=== PATIENT | female | born 1970 | race African-American/Black ===

== ENCOUNTER → 2016-12-04 | Outpatient (CLI) | payer OTHER ==
[~2016-12-04] MED LIST: NAPROSYN500 MG PO; NORCO 5-325 TA1 EACH PO; XANAX 0.5 MG0.5 MG PO; ZOFRAN ODT4 MG PO
== END ==
LOC: ULTRA 12:30 → RAD 12-05 07:38
DX: M47.896 Other spondylosis, lumbar region (principal); M54.41 Lumbago with sciatica, right side; M79.604 Pain in right leg; R60.9 Edema, unspecified

== ENCOUNTER → 2016-12-05 | Outpatient (CLI) | payer OTHER | LOC: RAD 14:21 | DX: Z12.31 Encounter for screening mammogram for malignant neoplasm of breast (principal) ==

== ENCOUNTER 2016-12-06 11:27 | Emergency (ER) | payer OTHER ==
[~2016-12-06] VITALS: Ht 175.3 cm; Wt 129.3 kg
[~2016-12-06 11:27] MED LIST changes: -NAPROSYN500 MG PO
[2016-12-06 13:02] VITALS: BP 128/60
[2016-12-06 13:05] LABS: CALCIUM 9.1 mg/dL (8.5-10.1); CREATININE 0.9 mg/dL (0.6-1.0); POTASSIUM 3.7 mmol/L (3.5-5.1)
[2016-12-06] MEDS ORDERED: NAPROSYN500 MG PO (13:45)
== END 2016-12-06 14:10 | disposition home or self-care (01) ==
LOC: ER 11:27
PROVIDERS: Physician Assistant
DX: S93.501A Unspecified sprain of right great toe, initial encounter (principal); F41.9 Anxiety disorder, unspecified; Z90.710 Acquired absence of both cervix and uterus; W10.9XXA Fall (on) (from) unspecified stairs and steps, initial encounter; Y93.89 Activity, other specified; Y92.89 Other specified places as the place of occurrence of the external cause; Y99.8 Other external cause status

== ENCOUNTER 2017-08-24 23:25 | Inpatient (IN) | payer OTHER ==
[~2017-08-24] VITALS: Ht 175.3 cm; Wt 131.5 kg
[~2017-08-24 23:25] MED LIST changes: +NAPROSYN500 MG PO
[2017-08-24 23:35] VITALS: BP 127/80
[2017-08-24] MEDS ORDERED: ZEGERID 40 MG1 EACH PO (23:39)
[2017-08-24] MEDS ORDERED: PROBIOTIC1 EAC1 PO (23:40)
[2017-08-24] MEDS ORDERED: ZYRTEC10 M5 PO (23:40)
[2017-08-25 00:33] LABS: URINE BILIRUBIN NEGATIVE (Negative); URINE BLOOD NEGATIVE (Negative); URINE CLARITY CLEAR; URINE COLOR YELLOW; URINE GLUCOSE-RANDOM* NEGATIVE (Negative); URINE KETONES NEGATIVE (Negative); URINE LEUKOCYTES-REFLEX NEGATIVE (Negative); URINE NITRITE-REFLEX NEGATIVE (Negative); URINE PROTEIN (DIPSTICK) NEGATIVE (Negative); URINE SPECIFIC GRAVITY 1.025 (1.005-1.035)
[2017-08-25 00:42] LABS: ABSOLUTE NEUTROPHILS 2.8 thou/uL (1.4-8.2); EOSINOPHILS 2.6 % (0.0-3.0); HEMATOCRIT 37.9 % (37.0-47.0); HEMOGLOBIN 12.7 gm/dL (12.0-15.0); LYMPHOCYTES 25.7 % (24.0-44.0); MCH 27.7 pg (26.0-34.0); MCHC 33.5 g/dL (28.0-37.0); MCV 82.7 fL (80.0-100.0); PLATELET COUNT 224 thou/uL (150-400); POLYS 62.7 % (36.0-66.0); RBC 4.58 mil/uL (4.20-5.00); RDW 15.7 % (10.5-14.5); WBC 4.5 thou/uL (4.0-11.0)
[2017-08-25 00:52] LABS: CALCIUM 8.5 mg/dL (8.5-10.1); CREATININE 0.9 mg/dL (0.6-1.0); POTASSIUM 3.2 mmol/L (3.5-5.1)
[2017-08-25 00:58] LABS: ALBUMIN 3.4 g/dL (3.4-5.0); DIRECT BILIRUBIN 0.1 mg/dL (<0.1-0.3); TOTAL BILIRUBIN 0.3 mg/dL (<0.1-1.0); TOTAL PROTEIN 8.1 g/dL (6.4-8.2)
[2017-08-25 04:15] VITALS: BP 127/50
[2017-08-25 04:28] VITALS: BP 120/56
[2017-08-25 08:43] VITALS: BP 115/58
[2017-08-25 15:13] VITALS: BP 111/64
[2017-08-25 19:14] VITALS: BP 122/67
[2017-08-26 03:24] VITALS: BP 125/55
[2017-08-26 05:39] LABS: CALCIUM 8.7 mg/dL (8.5-10.1); POTASSIUM 3.4 mmol/L (3.5-5.1)
[2017-08-26 07:20] VITALS: BP 113/72
[2017-08-26] MEDS ORDERED: PEPCID20 MG PO (08:41)
[2017-08-26 15:24] VITALS: BP 114/67
[2017-08-26 20:00] VITALS: BP 125/69
[2017-08-27 04:00] VITALS: BP 106/64
[2017-08-27 07:30] VITALS: BP 131/67
[2017-08-27 15:48] VITALS: BP 131/67
== END 2017-08-27 16:42 | disposition home or self-care (01) | DRG 391 ==
LOC: ER 23:25 → 4W 08-25 03:20 → EROBS 08-25 03:20 → 4W 08-25 03:59 → ENTRNSPT 08-27 16:14 → 4W 08-27 16:42
PROVIDERS: Emergency Medicine; Nurse Practitioner Family
DX: A08.4 Viral intestinal infection, unspecified (principal); E43 Unspecified severe protein-calorie malnutrition; Z68.41 Body mass index [BMI] 40.0-44.9, adult; K29.00 Acute gastritis without bleeding; F41.9 Anxiety disorder, unspecified; E66.01 Morbid (severe) obesity due to excess calories; Z90.710 Acquired absence of both cervix and uterus; Z79.899 Other long term (current) drug therapy; Z88.2 Allergy status to sulfonamides
CPT/HCPCS: 10040

== ENCOUNTER → 2017-09-02 | Outpatient (CLI) | payer OTHER ==
[~2017-09-02] MED LIST changes: +PEPCID20 MG PO; +PROBIOTIC1 EAC1 PO; +ZEGERID 40 MG1 EACH PO; +ZYRTEC10 M5 PO
== END ==
LOC: NUC 08:57 → CAT 13:48 → NUC 13:49
DX: N83.201 Unspecified ovarian cyst, right side (principal); K57.30 Diverticulosis of large intestine without perforation or abscess without bleeding; J90 Pleural effusion, not elsewhere classified; Z90.710 Acquired absence of both cervix and uterus

== ENCOUNTER 2018-07-17 12:08 | Emergency (ER) | payer OTHER ==
[~2018-07-17] VITALS: Ht 172.7 cm; Wt 113.4 kg
[2018-07-17] MEDS ORDERED: DOXYCYCLINE 10100 MG PO (14:08)
[2018-07-17] MEDS ORDERED: MEDROLDOSEPACK PO (14:08)
[2018-07-17 16:10] VITALS: BP 116/77
== END 2018-07-17 14:25 | disposition home or self-care (01) ==
LOC: ER 12:08
DX: J32.1 Chronic frontal sinusitis (principal); J32.0 Chronic maxillary sinusitis; F41.9 Anxiety disorder, unspecified; Z88.2 Allergy status to sulfonamides; Z90.710 Acquired absence of both cervix and uterus

== ENCOUNTER → 2018-12-26 | Outpatient (CLI) | payer OTHER ==
[~2018-12-26] MED LIST changes: +DOXYCYCLINE 10100 MG PO; +MEDROLDOSEPACK PO
== END ==
LOC: RAD 12:02
DX: Z12.31 Encounter for screening mammogram for malignant neoplasm of breast (principal)

== ENCOUNTER 2019-01-25 23:54 | Emergency (ER) | payer OTHER ==
[~2019-01-25] VITALS: Ht 175.3 cm; Wt 131.5 kg
[2019-01-26] MEDS ORDERED: LEXAPRO 10 MG T10 M1 PO (00:01)
[2019-01-26] MEDS ORDERED: SPIRONOLACTONE25 M1 PO (00:02)
[2019-01-26 02:49] VITALS: BP 147/84
== END 2019-01-26 03:10 | disposition home or self-care (01) ==
LOC: ER 23:54
DX: M79.652 Pain in left thigh (principal); M79.662 Pain in left lower leg; R22.42 Localized swelling, mass and lump, left lower limb; F41.9 Anxiety disorder, unspecified; Z90.710 Acquired absence of both cervix and uterus; Z88.2 Allergy status to sulfonamides

== ENCOUNTER 2019-06-04 01:49 | Emergency (ER) | payer OTHER ==
[~2019-06-04] VITALS: Ht 175.3 cm; Wt 129.3 kg
[~2019-06-04 01:49] MED LIST changes: +LEXAPRO 10 MG T10 M1 PO; +SPIRONOLACTONE25 M1 PO
[2019-06-04 03:05] LABS: URINE BILIRUBIN NEGATIVE (Negative); URINE BLOOD NEGATIVE (Negative); URINE CLARITY CLEAR; URINE COLOR YELLOW; URINE GLUCOSE-RANDOM* NEGATIVE (Negative); URINE KETONES NEGATIVE (Negative); URINE LEUKOCYTES-REFLEX NEGATIVE (Negative); URINE NITRITE-REFLEX NEGATIVE (Negative); URINE PROTEIN (DIPSTICK) NEGATIVE (Negative); URINE SPECIFIC GRAVITY 1.025 (1.005-1.035); URINE UROBILINOGEN 0.2 E.U./dl (0.2-1.0)
[2019-06-04 04:09] LABS: ABSOLUTE NEUTROPHILS 5.4 thou/uL (1.4-8.2); BASOPHILS 0.4 % (0.0-2.0); EOSINOPHILS 1.1 % (0.0-3.0); HEMATOCRIT 36.8 % (37.0-47.0); HEMOGLOBIN 12.2 gm/dL (12.0-15.0); LYMPHOCYTES 14.4 % (24.0-44.0); MCH 28.7 pg (26.0-34.0); MCHC 33.3 g/dL (28.0-37.0); MCV 86.2 fL (80.0-100.0); MONOCYTES 7.7 % (1.0-8.0); PLATELET COUNT 267 thou/uL (150-400); POLYS 76.4 % (36.0-66.0); RBC 4.27 mil/uL (4.20-5.00); RDW 15.9 % (10.5-14.5); WBC 7.1 thou/uL (4.0-11.0)
[2019-06-04 04:14] LABS: ANION GAP 7 mmol/L (7-16); BUN 11 mg/dL (7-18); CALCIUM 9.2 mg/dL (8.5-10.1); CHLORIDE 99 mmol/L (98-107); CO2 28 mmol/L (21-32); CREATININE 0.8 mg/dL (0.6-1.0); GLUCOSE 110 mg/dL (74-106); POTASSIUM 3.8 mmol/L (3.5-5.1); SODIUM 134 mmol/L (136-145)
[2019-06-04 04:21] LABS: ALBUMIN 3.3 g/dL (3.4-5.0); DIRECT BILIRUBIN < 0.1 mg/dL (<0.1-0.2); LIPASE 40 U/L (73-393); SGOT 23 U/L (15-37); SGPT 29 U/L (30-65); TOTAL BILIRUBIN 0.1 mg/dL (<0.1-1.0); TOTAL PROTEIN 7.7 g/dL (6.4-8.2)
[2019-06-04] MEDS ORDERED: MOBIC7.5 MG PO (05:32)
[2019-06-04] MEDS ORDERED: CIPROFLOXACIN500 M1 PO (05:32)
[2019-06-04] MEDS ORDERED: FLAGYL500 M1 PO (05:32)
[2019-06-04] MEDS ORDERED: ZOFRAN ODT4 MG PO (05:32)
[2019-06-04 05:41] VITALS: BP 136/84
== END 2019-06-04 06:07 | disposition home or self-care (01) ==
LOC: ER 01:49
PROVIDERS: Emergency Medicine
DX: K57.92 Diverticulitis of intestine, part unspecified, without perforation or abscess without bleeding (principal); R55 Syncope and collapse; K92.1 Melena; B02.9 Zoster without complications; R11.2 Nausea with vomiting, unspecified; R19.7 Diarrhea, unspecified; Z90.710 Acquired absence of both cervix and uterus; Z79.899 Other long term (current) drug therapy; Z88.2 Allergy status to sulfonamides

== ENCOUNTER 2019-08-23 15:29 | Emergency (ER) | payer OTHER ==
[~2019-08-23] VITALS: Ht 175.3 cm; Wt 131.5 kg
[~2019-08-23 15:29] MED LIST changes: +CIPROFLOXACIN500 M1 PO; +FLAGYL500 M1 PO; +MOBIC7.5 MG PO
[2019-08-23 16:16] LABS: HEMATOCRIT 39.6 % (37.0-47.0); HEMOGLOBIN 13.1 gm/dL (12.0-15.0); MCV 84.9 fL (80.0-100.0); RBC 4.66 mil/uL (4.20-5.00); RDW 15.8 % (10.5-14.5); WBC 3.6 thou/uL (4.0-11.0)
[2019-08-23 16:28] LABS: ANION GAP 7 mmol/L (7-16); BUN 9 mg/dL (7-18); CALCIUM 9.3 mg/dL (8.5-10.1); CHLORIDE 104 mmol/L (98-107); CO2 29 mmol/L (21-32); CREATININE 0.9 mg/dL (0.6-1.0); GLUCOSE 97 mg/dL (74-106); POTASSIUM 3.6 mmol/L (3.5-5.1); SODIUM 140 mmol/L (136-145)
[2019-08-23 16:31] LABS: TROPONIN-I <0.06 ng/mL (<0.06)
[2019-08-23 16:37] LABS: URINE BILIRUBIN NEGATIVE (Negative); URINE BLOOD NEGATIVE (Negative); URINE CLARITY CLEAR; URINE COLOR YELLOW; URINE GLUCOSE-RANDOM* NEGATIVE (Negative); URINE KETONES NEGATIVE (Negative); URINE LEUKOCYTES-REFLEX NEGATIVE (Negative); URINE NITRITE-REFLEX NEGATIVE (Negative); URINE PROTEIN (DIPSTICK) NEGATIVE (Negative); URINE SPECIFIC GRAVITY 1.015 (1.005-1.035); URINE UROBILINOGEN 0.2 E.U./dl (0.2-1.0)
[2019-08-23 16:43] LABS: AMP/METHAMP Negative (Negative); BARBITURATES Negative (Negative); BENZODIAZEPINES Negative (Negative); COCAINE Negative (Negative); METHADONE Negative (Negative); OPIATES Negative (Negative); PCP Negative (Negative)
[2019-08-23] MEDS ORDERED: REGLAN 5 MG TAB5 MG PO (18:55)
[2019-08-23 19:24] VITALS: BP 138/70
--- NOTE | 2019-08-24 07:27 | EKG ---
[facility] [place] [address] ELECTROCARDIOGRAM REPORT Name: SULAIMAN OLSON Room #: DEP [facility]#: [id number] Admission: 08/23/19 Attend Phys: Discharge: 08/23/19 Date of : 68 Report #: [id number] THIS REPORT FOR: cc: Delia Young DNP, Mary E. DNP Lundgren, Craig H. MD [facility] THIS REPORT FOR: //name// [facility] ED Test Date: 2019-08-23 Test Time: 15:48:00 Pat Name: SULAIMAN OLSON Department: Room: Gender: F Green House Manager: : 1970 Requested By: Rodrick Coleman Order Number: [id number] MD: Aram Austin Measurements Intervals Howe Rate: 68 P: 5 MN: 196 QRS: 23 QRSD: 100 T: 14 QT: 402 QTc: 428 Interpretive Statements Sinus rhythm Abnormal R-wave progression, early transition Borderline T abnormalities, anterior leads Compared to ECG 09/17/2015 19:23:45 No significant changes Electronically Signed On 08-24-2019 7:26:20 CDT by Aram Austin [email or web address] <ELECTRONICALLY SIGNED> By: Aram Austin MD, [facility] 08/24/19 0726 1548 1548 Aram Austin MD, [facility] /EPI
== END 2019-08-23 19:25 | disposition home or self-care (01) ==
LOC: ER 15:29
PROVIDERS: Emergency Medicine
DX: R51 Headache (principal); R11.0 Nausea; Z90.710 Acquired absence of both cervix and uterus; Z79.2 Long term (current) use of antibiotics; Z79.899 Other long term (current) drug therapy; Z88.2 Allergy status to sulfonamides

== ENCOUNTER → 2020-03-24 | Outpatient (CLI) | payer OTHER ==
[~2020-03-24] MED LIST changes: +REGLAN 5 MG TAB5 MG PO
== END ==
LOC: RAD 15:34
PROVIDERS: ATTEND Nurse Practitioner
DX: Z12.31 Encounter for screening mammogram for malignant neoplasm of breast (principal)

== ENCOUNTER 2020-05-09 14:28 | Emergency (ER) | payer OTHER ==
[~2020-05-09] VITALS: Ht 175.3 cm; Wt 133.8 kg
[2020-05-09] MEDS ORDERED: AUGMENTIN 875-1 EACH PO (15:05)
[2020-05-09] MEDS ORDERED: PROMETHAZINE-D473 M1 PO (15:05)
[2020-05-09 16:00] VITALS: BP 145/87
== END 2020-05-09 16:57 | disposition home or self-care (01) ==
LOC: ER 14:28
DX: J32.9 Chronic sinusitis, unspecified (principal); R11.10 Vomiting, unspecified; Z90.710 Acquired absence of both cervix and uterus; Z79.1 Long term (current) use of non-steroidal anti-inflammatories (NSAID); Z79.899 Other long term (current) drug therapy; Z88.2 Allergy status to sulfonamides; Z20.822 Contact with and (suspected) exposure to COVID-19

== ENCOUNTER → 2020-05-13 | Outpatient (CLI) | payer OTHER ==
[~2020-05-13] MED LIST changes: +AUGMENTIN 875-1 EACH PO; +PROMETHAZINE-D473 M1 PO
== END ==
LOC: NUC 05-02 14:44
PROVIDERS: ATTEND Nurse Practitioner
DX: R10.9 Unspecified abdominal pain (principal)

== ENCOUNTER → 2020-05-26 | Outpatient (CLI) | payer OTHER | LOC: ULTRA 09:15 | PROVIDERS: ATTEND Surgery | DX: K76.89 Other specified diseases of liver (principal) ==

== ENCOUNTER 2020-08-17 00:11 | Emergency (ER) | payer OTHER ==
[~2020-08-17] VITALS: Ht 175.3 cm; Wt 136.1 kg
[2020-08-17] MEDS ORDERED: ADVIL200 M1 PO (00:28)
[2020-08-17] MEDS ORDERED: TYLENOL325 M1 PO (02:17)
[2020-08-17] MEDS ORDERED: IBUPROFEN 800800 MG PO (02:17)
[2020-08-17] MEDS ORDERED: VANACOF DM LIQ240 ML PO (02:17)
[2020-08-17 02:29] VITALS: BP 136/63
== END 2020-08-17 02:32 | disposition home or self-care (01) ==
LOC: ER 00:11
DX: U07.1 COVID-19 (principal); Z88.2 Allergy status to sulfonamides; Z79.899 Other long term (current) drug therapy; Z90.710 Acquired absence of both cervix and uterus

== ENCOUNTER 2020-08-21 15:27 | Inpatient (IN) | payer OTHER ==
[~2020-08-21] VITALS: Ht 175.3 cm; Wt 138.8 kg
[~2020-08-21 15:27] MED LIST changes: +ADVIL200 M1 PO; +IBUPROFEN 800800 MG PO; +TYLENOL325 M1 PO; +VANACOF DM LIQ240 ML PO
[2020-08-21 15:40] VITALS: BP 149/66
[2020-08-21 16:27] LABS: HEMATOCRIT 34.5 % (37.0-47.0); HEMOGLOBIN 11.1 gm/dL (12.0-15.0); MCH 26.7 pg (26.0-34.0); MCHC 32.2 g/dL (28.0-37.0); PLATELET COUNT 112 thou/uL (150-400); RBC 4.16 mil/uL (4.20-5.00); RDW 16.7 % (10.5-14.5); WBC 2.2 thou/uL (4.0-11.0)
[2020-08-21 16:41] LABS: ANION GAP 5 mmol/L (7-16); BUN 8 mg/dL (7-18); CALCIUM 8.4 mg/dL (8.5-10.1); CHLORIDE 103 mmol/L (98-107); CO2 31 mmol/L (21-32); CREATININE 1.1 mg/dL (0.6-1.0); GLUCOSE 119 mg/dL (74-106); POTASSIUM 3.6 mmol/L (3.5-5.1); SODIUM 139 mmol/L (136-145)
[2020-08-21 16:50] LABS: ALBUMIN 2.8 g/dL (3.4-5.0); SGOT 27 U/L (15-37); SGPT 23 U/L (14-59); TOTAL BILIRUBIN 0.3 mg/dL (0.2-1.0); TOTAL PROTEIN 7.1 g/dL (6.4-8.2); TROPONIN-I <0.06 ng/mL (<0.06)
[2020-08-21 17:21] LABS: ABSOLUTE NEUTROPHILS 1.7 thou/uL (1.4-8.2); ANISOCYTOSIS 1+; HYPOCHROMASIA 1+; MICROCYTES 1+; POLYCHROMASIA SLIGHT
[2020-08-21 17:23] LABS: LARGE PLATELETS FEW
[2020-08-21 18:34] LABS: URINE BILIRUBIN NEGATIVE (Negative); URINE BLOOD NEGATIVE (Negative); URINE CLARITY SL CLOUDY; URINE COLOR YELLOW; URINE GLUCOSE-RANDOM* NEGATIVE (Negative); URINE KETONES NEGATIVE (Negative); URINE LEUKOCYTES-REFLEX NEGATIVE (Negative); URINE NITRITE-REFLEX NEGATIVE (Negative); URINE PROTEIN (DIPSTICK) NEGATIVE (Negative); URINE SPECIFIC GRAVITY <= 1.005 (1.005-1.035)
[2020-08-21 18:51] VITALS: BP 125/50
[2020-08-21 19:01] VITALS: BP 125/50
[2020-08-21 20:07] VITALS: BP 142/85
[2020-08-21] MEDS ORDERED: NORCO5 PO (23:00)
[2020-08-21] MEDS ORDERED: SPIRONOLACTONE100 M1 PO (23:01)
[2020-08-21] MEDS ORDERED: OMEPRAZOLE40 MG PO (23:01)
[2020-08-22] VITALS (7 sets, daily range): BP systolic 90–121; BP diastolic 41–68
[2020-08-22 05:39] LABS: MCHC 32.5 g/dL (28.0-37.0); MCV 83.2 fL (80.0-100.0); RBC 4.09 mil/uL (4.20-5.00); RDW 16.4 % (10.5-14.5)
[2020-08-22 05:43] LABS: WBC 1.7 thou/uL (4.0-11.0)
[2020-08-22 05:53] LABS: ALBUMIN 2.5 g/dL (3.4-5.0); CALCIUM 8.2 mg/dL (8.5-10.1); CREATININE 0.9 mg/dL (0.6-1.0); POTASSIUM 3.9 mmol/L (3.5-5.1); TOTAL BILIRUBIN 0.2 mg/dL (0.2-1.0); TOTAL PROTEIN 6.8 g/dL (6.4-8.2)
--- NOTE | 2020-08-22 07:31 | NUR ---
ASSUME CARE 1999. PT/VITALS STABLE. TEMP STABLE NOW. A/O X 4/PLEASANT. INTERNITTENT CHEST AND BACK PAIN. GIOOD TOLERANCE TO ACTIVITY. SOB WITH EXERTION. SR ON MONITOR. NO DISTRESS NOTED THROUGH THE SHIFT. ON 2L NC THROUGHOUT WITH NO INCREASE IN O2 DEMAND. WBC CRITICALLY LOW AT 1.7/ REHABILITATION INSPECTOR AWARE. ASSESSMENT CHARTED. CONSULTS PLACED FOR ID AND PULMONARY. PLAN IS TO CONTINUE TO MONITOR PT FOR WORSENING COVID SYMPTOMS AND CONTINUE MANAGEMENT OF COVID PNA. WILL CONTINUE TO MONITOR AND FOLLOW WITH POC
[2020-08-22 11:46] LABS: BE(vivo) 0.6 mmol/L (-2 to +3); HCO3 24.7 mmol/L (22.0-26.0); PCO2 37.7 mmHg (35.0-45.0); PO2 64.6 mmHg (80.0-100.0); pH 7.434 (7.360-7.450); sO2 93.3 % (92.0-98.0)
--- NOTE | 2020-08-22 15:00 | NUR ---
INITIAL ASSESSMENT: SW reviewed chart and spoke with nursing and attending physician. Pt was admitted from home due to COVID. Pt had positive COVID test on 08/17. Pt has not received the COVID vaccine. Pt febrile and on 2L of O2. Pt is on IV abx and IV steroids. Pt has been started on Remdesivir. Pulm and ID consulted. SW spoke with pt via phone. Introduced role of SW. Pt is alert/orientated x 4 and reports she lives at home. Prior to admission, pt was independent with ADLs. Pt is employed. Pt's PCP is Dr. Delia Young. No use of DME prior to admission. Plan is for pt to discharge home when medically stable. SW is following to assist as needed with discharge planning.
--- NOTE | 2020-08-22 18:29 | NUR ---
PATIENT HAD UNEVENTFUL DAY. OXYGEN WEANED FROM 2L TO RA WITH O2 SATS REMAINING IN UPPER 90S. RT COLLECTED ABG, WHICH REVEALED PO2 OF 64, SO 2L NC WAS PLACED. PATIENT ABLE TO PERFORM ADLS AND AMBULATE IN THE ROOM INDEPENDENTLY. TOLERATING MEALS. SHE HAD A FEW OCCURANCES OF LOOSE STOOL, SO IMODIUM WAS ORDERED AND ADMINISTERED.
--- NOTE | 2020-08-22 22:13 | NUR ---
PT ALERT AND ORIENTED X4. VSS. UNLABORED ON O2 1LNC. BS DIMINISHED. NO COUGH NOTED PRESENTLY AT TIME OF ASSESSMENT. C/O HANEY. MEDICATED WITH 2 TYLENOL. XANAX GIVEN FOR ANXIETY. IV ABX INFUSING. NO S/S DISTRESS PRESENTLY. WILL CONTINUE TO MONITOR PT FOR CHANGES.
[2020-08-23 04:07] VITALS: BP 86/54
[2020-08-23 04:27] VITALS: BP 98/58
[2020-08-23 05:56] LABS: BASOPHILS 0.2 % (0.0-2.0); HEMOGLOBIN 10.7 gm/dL (12.0-15.0); RBC 3.96 mil/uL (4.20-5.00)
[2020-08-23 05:59] LABS: EOSINOPHILS 0.2 % (0.0-3.0); HEMATOCRIT 33.1 % (37.0-47.0); LYMPHOCYTES 33.7 % (24.0-44.0); MCH 27.1 pg (26.0-34.0); MCHC 32.3 g/dL (28.0-37.0); MCV 83.7 fL (80.0-100.0); MONOCYTES 12.8 % (1.0-8.0); PLATELET COUNT 123 thou/uL (150-400); POLYS 53.1 % (36.0-66.0); RDW 16.4 % (10.5-14.5)
[2020-08-23 06:05] LABS: ALBUMIN 2.2 g/dL (3.4-5.0); CALCIUM 8.4 mg/dL (8.5-10.1); CREATININE 0.9 mg/dL (0.6-1.0); MAGNESIUM 2.1 mg/dL (1.8-2.4); POTASSIUM 4.3 mmol/L (3.5-5.1); TOTAL BILIRUBIN 0.1 mg/dL (0.2-1.0); TOTAL PROTEIN 6.2 g/dL (6.4-8.2)
[2020-08-23 06:12] LABS: WBC 1.8 thou/uL (4.0-11.0)
[2020-08-23 08:00] VITALS: BP 115/68
--- NOTE | 2020-08-23 08:03 | HC ---
[facility] [place] [address] CONSULTATION Name: SULAIMAN OLSON Room #: 349-I ADM IN M.R.#: [id number] Admission: 08/21/20 Attend Phys: Eliot Mar MD Discharge: Date of : 68 Report #: [id number] THIS REPORT FOR: cc: Delia Young DNP, Mary E. DNP Barry, Joseph W. MD ~ DOC #: [id number] Panda Chapman MD DATE OF SERVICE: 08/22/2020 INFECTIOUS DISEASE CONSULTATION ATTENDING PHYSICIAN: Dr. Keyes. REASON FOR EVALUATION: COVID-19 infection, complicated by pneumonitis and respiratory failure. HISTORY OF PRESENT ILLNESS: The patient examined. This is a 49-year-old woman with history of prediabetes, some anxiety, presented to the emergency room with complaints of dyspnea. She had been seen earlier on 08/17. At that time with nasal congestion, felt to have some fevers, complains of chills and dyspnea, has not had significant cough at that point, underwent testing for influenza, which was negative; however, had a positive COVID-19 test. Due to the progressive signs and symptoms, she represented to the emergency room again with dyspnea, nonproductive cough and fever. Chest x-ray noted no acute process; however, CT did note changes, multifocal patchy alveolar infiltrates suggestive of the COVID-19. Due to concern about hypoxemia, she was admitted, placed on supplemental oxygen to 2 L per nasal cannula. She was empirically started on antimicrobial therapy including ceftriaxone and given remdesivir as well. Currently, she has a persistent cough, although now she is off oxygen. She appreciates that she has been afebrile over the course of the last 12 hours. She does admit to chest related discomfort, perhaps attributable to coughing. She has a diminished appetite with poor p.o. intake and subsequently developed diarrheal stools. ALLERGIES: LISTED TO SULFA. CURRENT MEDICATIONS: Include vitamins, spironolactone, citalopram, loratadine, dexamethasone, pantoprazole, zinc sulfate, ascorbic acid, enoxaparin, alprazolam as needed, remdesivir, ceftriaxone. PAST MEDICAL HISTORY: As described above, dysfunctional uterine bleeding, required embolization, previous hysterectomy, prediabetes, anxiety. SOCIAL HISTORY: Nonsmoker, occasional ethanol, no illicit drug use. [address] [address] CONSULTATION Name: SULAIMAN OLSON Room #: 349-I ADM IN M.R.#: [id number] Admission: 08/21/20 Attend Phys: Eliot Mar MD Discharge: Date of : 68 Report #: [id number] FAMILY HISTORY: Noncontributory. REVIEW OF SYSTEMS: Otherwise, unremarkable. PHYSICAL EXAMINATION: GENERAL: She is lucid. She is in moderate distress. She has a cough that is not evidently productive. She is reasonably well nourished. VITAL SIGNS: Temperature 98.1, T-max last night up to 103.1, pulse 78, respirations 18, blood pressure 90/54. SKIN: Warm, dry, no rashes. HEENT: Normocephalic. Extraocular muscles intact. NECK: Supple. LUNGS: Few scattered coarse breath sounds. HEART: Irregular, do not appreciate a murmur. ABDOMEN: Obese, somewhat firm, nontender. EXTREMITIES: No cyanosis. GENITOURINARY AND RECTAL: Deferred. LABORATORY DATA: Blood cultures sterile thus far. Electrolytes: Sodium 142, potassium 3.9, chloride 107, bicarbonate 26, anion gap of 9, BUN and creatinine 9 and 0.9, glucose of 174. LFTs unremarkable. Albumin of 2.5, total protein of 6.8, estimated GFR of 80. CBC: White count of 1.7, H and H 11.0 and 34.0, platelets of 113. Urinalysis unremarkable. CT of the chest as noted above. No evidence of PE, has had multifocal patchy alveolar infiltrates consistent with COVID-19 pneumonitis, small pleural effusions, suspect some reactive adenopathy. D-dimer 1.13. ProBNP of 5. Lactic acid of 0.8. ASSESSMENT AND PLAN: 1. COVID-19 infection, complicated by pneumonitis and respiratory failure. 2. Pancytopenia, presumably of reactive nature. CBC over a year ago was notable for no cytopenias. We will plan to continue empiric therapy with ceftriaxone as well as a 5-day course of remdesivir. We will add ivermectin. Continue corticosteroids and vitamins. If worsens, we would utilize some Actemra. She remains quite tenuous at this point. Continue to monitor expectantly. She has persistent diarrhea that certainly could be secondary to the COVID or perhaps some other complications, can send additional stool studies as required. She remains somewhat tenuous. MD SATINDER Quiroz/TIAGO [facility] [address] [place] [address] CONSULTATION Name: WESLEYSULAIMAN Room #: 349-I ADM IN Miriam.Denia.#: [id number] Admission: 08/21/20 Attend Phys: Eliot Mar MD Discharge: Date of : 68 Report #: [id number] <ELECTRONICALLY SIGNED> By: Panda Chapman MD 08/23/20 08 0916 21 Panda Chapman MD /nt
--- NOTE | 2020-08-23 10:45 | NUR ---
ASSUMED PT CARE AT SHIFT CHANGE, PT IS A&OX4, REGULAR, UNLABORED BREATHING. PT STATES SHE IS VERY TIRED, THIS RN EXPLAINED COVID19 DISEASE PROCESS AND ENCOURAGED PT TO REST MUCH POSSIBLE. PT VERBALIZED UNDERSTANDING. PT HAS NO OTHER COMPLAINTS, IV SITE WNL, INFUSING MEDICATION. PT ABLE TO SWALLOW PILLS W/O ISSUE.
--- NOTE | 2020-08-23 12:57 | NUR ---
SW reviewed chart and spoke with nursing and attending physician. Pt remains in Enhanced Isolation due to COVID. Pt is afebrile and on 1L of O2. Pt is on IV steroids, Remdesivir and Ivermectin. Plan is for pt to return home when medically stable and after completion of course of Remdesivir. SW is following to assist as needed with discharge planning.
[2020-08-23 15:03] VITALS: BP 95/58
[2020-08-23 19:29] VITALS: BP 119/77
--- NOTE | 2020-08-24 04:47 | NUR ---
FOLLOWING POC WITH REMDESIVIR AND IVPB ANTIBIOTIC. PT STATES SHE GETS SOA GOING TO RESTROOM AND STILL EXTREMELY EXHAUSTED. CALL LIGHT ACCESSIBLE.
[2020-08-24 06:04] VITALS: BP 101/57
[2020-08-24 07:02] VITALS: BP 100/59
[2020-08-24 11:11] VITALS: BP 105/62
[2020-08-24 12:23] LABS: % SATURATION 34 % (20-39); IRON 66 ug/dL (50-170); TIBC 197 ug/dL (250-450)
[2020-08-24 12:50] LABS: FOLIC ACID 17.8 ng/mL (8.6-58.9)
--- NOTE | 2020-08-24 13:26 | NUR ---
REQUESTED IS FROM RT. ANA WILL BRING ONE UP FOR PT.
--- NOTE | 2020-08-24 13:32 | NUR ---
MAXWELL reviewed chart and spoke with nursing and attending physician. Pt remains in Enhanced Isolation due to COVID. Pt is afebrile and on 1L of O2. Pt is on IV abx and IV steroids. Pt will finish courses of Remdesivir and Ivermectin prior to discharge. MAXWELL spoke with pt via phone. Pt states she feels short of breath when up walking. Pt was not on O2 or receiving breathing treatments prior to discharge. PT/OT to be ordered to evaluate pt for discharge needs. Pt may need rest/exercise oximetry prior to discharge to determine if pt qualifies for home O2. MAXWELL is following to assist as needed with discharge planning.
[2020-08-24 19:59] VITALS: BP 111/66
[2020-08-25 07:52] LABS: HEMATOCRIT 31.7 % (37.0-47.0); HEMOGLOBIN 10.4 gm/dL (12.0-15.0); MCH 27.1 pg (26.0-34.0); MCHC 32.8 g/dL (28.0-37.0); MCV 82.5 fL (80.0-100.0); PLATELET COUNT 162 thou/uL (150-400); RBC 3.84 mil/uL (4.20-5.00); RDW 16.7 % (10.5-14.5)
[2020-08-25 08:49] VITALS: BP 104/64
[2020-08-25 10:41] LABS: ABSOLUTE NEUTROPHILS 1.6 thou/uL (1.4-8.2); METAMYELOCYTES 1 %; PLATELET ESTIMATE NORMAL
[2020-08-25 11:13] VITALS: BP 112/67
--- NOTE | 2020-08-25 13:39 | NUR ---
MAXWELL reviewed chart and spoke with nursing and attending physician. Pt remains in Enhanced Isolation due to COVID. Pt is afebrile and on 2L of O2. Pt is on IV abx and IV steroids. Pt is completing course of Remdesivir. Discharge home is anticipated in 1-2 days. PT/OT to eval for discharge needs. Rest/exercise oximetry to be completed to determine if pt needs home O2. MAXWELL received voice message from IRENE Reynoso CM at pt's insurance. ( ext [phone]). MAXWELL returned call and left voice message for [place] to request list of in-network providers. Plan is for pt to discharge home when medically stable. MAXWELL is following to assist as needed with discharge planning.
--- NOTE | 2020-08-25 14:57 | NUR ---
PATIENT HAS HAD C/O NON CHEST PAIN. PATIENT STATES "MY CHEST HURTS FROM COUGHING". DR. OLIVA NOTIFIED, NEW MEDICATIONS ORDERED. PATIENT WORKED WITH PT AND OT THIS SHIFT. NO OTHER CHANGES THIS SHIFT.
[2020-08-25 16:14] VITALS: BP 131/56
[2020-08-25 21:10] VITALS: BP 112/65
[2020-08-26 04:15] VITALS: BP 120/72
--- NOTE | 2020-08-26 04:32 | NUR ---
PT MAKING SLOW PROGRESS TOWARDS GOALS. ON O2 AT 2L PER NC OVERNIGHT. X1 DOSE OF PAIN MEDICATION FOR CHEST DISCOMFORT AND HEADACHE R/T COUGHING. PAIN FROM 8/10 TO 5/10 AFTER DOSING.
[2020-08-26 06:07] LABS: HEMATOCRIT 34.4 % (37.0-47.0); MCH 26.5 pg (26.0-34.0); MCHC 31.9 g/dL (28.0-37.0); MCV 83.1 fL (80.0-100.0); PLATELET COUNT 187 thou/uL (150-400); RBC 4.14 mil/uL (4.20-5.00); RDW 16.8 % (10.5-14.5); WBC 3.7 thou/uL (4.0-11.0)
[2020-08-26 07:44] VITALS: BP 119/84
--- NOTE | 2020-08-26 08:18 | HC ---
[facility] [place] [address] CONSULTATION Name: SULAIMAN OLSON Room #: 349-I ADM IN M.R.#: [id number] Admission: 08/21/20 Attend Phys: Eliot Mar MD Discharge: Date of : 68 Report #: [id number] THIS REPORT FOR: cc: Delia Young DNP, Mary E. DNP McKittrick, Richard James MD ~ DOC #: [id number] cc: Eliot Mar MD, Tobi Pascual MD, MD Ben Quiroz MD DATE OF SERVICE: 08/24/2020 REQUESTING PHYSICIANS: 1. ____ 2. Eliot Mar MD REASON FOR CONSULTATION: Leukopenia and thrombocytopenia. HISTORY OF PRESENT ILLNESS: The patient is a 49-year-old female admitted for COVID infection. She is not aware of any past history of low blood counts, so she thinks maybe years ago, she might have been anemic. She also says one of her daughters may have taken iron pills or may be on iron pills. Notably, her white count back in 2019 was around 7.1 and on admission here on 08/22 is 3.6, it was 1.7 yesterday, 1.8 today. Hemoglobin in 2019 was 13.1 and on admission 11.1, today 10.7. MCV has been stable in the mid 80s since that time. RDW has been stable at about 16.4, platelet count in 08/2019 is 210 and on admission here 112, yesterday 113, and today 123. Absolute neutrophils on admission were 1.7, yesterday they are 1.0. Note that there is no acute form seen on the automated diff. There was a comment about a few large platelets. Her chemistries are fairly unremarkable with a normal bilirubin. Transaminases are normal range. The patient reports no unusual previous use of antibiotics or infections. She also does talk about some occasional bruising on her lower extremities below around the ankles. Nothing on the upper chest or neck. PAST MEDICAL HISTORY: Notable for the recent COVID infection. Also, history of obesity, uterine bleeding in the past status post embolization, also believes there is a history of anxiety. SOCIAL HISTORY: Works for [employer]. If I recall, not a smoker, not a drinker. No street drugs. PHYSICAL EXAMINATION: GENERAL: The patient appears her stated age. She is obese with a height of 5 feet 9 inches or 175.3 cm, weight of 306 pounds or 138.8 kilograms. VITAL SIGNS: Blood pressure 100/59, respirations 18, pulse 59, afebrile at 97.9. [facility] [address] [place] [address] CONSULTATION Name: SULAIMAN OLSON Room #: 349-I ADM IN M.R.#: [id number] Admission: 08/21/20 Attend Phys: Eliot Mar MD Discharge: Date of : 68 Report #: [id number] HEENT: Face is symmetrical. NEUROLOGIC: Speech and thought pattern is normal. She is moving extremities. Voice is soft. She is coughing, clearing throat some during the exam. LUNGS:. Lungs may have some soft rhonchi upper air velasquez bilaterally. No stridor. No wheezes at this time. HEART: Regular rate. ABDOMEN: Very obese. No organomegaly palpable. No enlarged lymph nodes in the supraclavicular, cervical, axillary region. EXTREMITIES: Without clubbing, cyanosis. IMAGING: Here includes a CT chest that did not find a pulmonary emboli or aortic dissection. There is some multifocal patchy alveolar infiltrates in the lung velasquez. Few lymph nodes in the hilar region greater than left, thought to be reactive. MEDICATIONS: At this time in the hospital currently include ceftriaxone 1 gram daily, nystatin topically t.i.d., ipratropium and albuterol respiratory therapy q. 4 hours, loperamide 2 mg q. 6 hours p.r.n., vitamin D 1000 units b.i.d., vitamin one tab daily, spironolactone 100 mg daily, citalopram 20 daily, loratadine 10 daily, dexamethasone 6 mg daily IV, pantoprazole 40 daily, zinc sulfate 220 mg t.i.d., vitamin C 500 b.i.d., Lovenox 60 b.i.d., guaifenesin 1200 b.i.d., Xanax 0.5 b.i.d. p.r.n., Tylenol p.r.n., Zofran p.r.n., remdesivir 100 mg IV, I think that is daily and then I think there is also ivermectin 27 mg q. 48 hours x2 doses. ASSESSMENT AND PLAN: 1. Leukopenia, thrombocytopenia and anemia in the setting of COVID infection, suspect that there is reactive. They look like they are ____ and maybe start to go up. We will check iron, B12 and folate, also peripheral smear. We will also follow serial blood counts. At this point, I am not suspecting a bone marrow abnormality such as leukemia or lymphoma, but we will follow. 2. COVID infection pneumonia, continues multiple anti-infectives and supportive measures. 3. Obesity. Encourage weight loss. 4. Respiratory failure, oxygen supplementation and inhalation therapies. 5. Mood. Citalopram. We will follow with you. Ben Liang MD RJM/KDA [facility] [address] [place] [address] CONSULTATION Name: SULAIMAN OLSON Room #: 349-I ADM IN M.R.#: [id number] Admission: 08/21/20 Attend Phys: Eliot Mar MD Discharge: Date of : 68 Report #: [id number] <ELECTRONICALLY SIGNED> By: Ben Liang MD 08/26/20 0818 0734 58 Ben Liang MD /nt
[2020-08-26 10:56] LABS: METAMYELOCYTES 3 %
[2020-08-26 11:05] LABS: ANISOCYTOSIS 1+
[2020-08-26 11:07] VITALS: BP 117/69
--- NOTE | 2020-08-26 11:32 | NUR ---
MAXWELL reviewed chart and spoke with nursing and attending physician. Pt remains in Enhanced Isolation due to COVID. Pt has completed course of Remdesivir. Rest/exercise oximetry requested to determine if pt needs home O2. MAXWELL received call back from [place] with pt's insurance stating that [facility] is in network with pt's insurance policy for DME and [facility] and [facility] are also in network. MAXWELL placed call to pt's room. No answer. MAXWELL faxed info and face sheet to [facility] for review for home O2. SW to follow up with pt at a later time to discuss HH services. MAXWELL notified [facility] liaison of new home O2 referral. MAXWELL is following to assist as needed with discharge planning.
[2020-08-26 13:08] LABS: HEMATOLOGY COMMENTS Note: (()); HEMOGLOBIN 10.9 g/dL (11.1-15.9)
[2020-08-26 13:49] VITALS: BP 117/69
[2020-08-26 15:29] VITALS: BP 119/78
--- NOTE | 2020-08-26 17:02 | NUR ---
ASSUMED PATIENT CARE AT 0700. A/O X4. ON 2L/NC. GENERLIZED WEAKNESS, DENIES PAIN . SLOWLY TOWARDS POC GOALS.
[2020-08-26 19:46] VITALS: BP 120/75
--- NOTE | 2020-08-26 23:07 | NUR ---
PT ALERT AND ORIENTED X4. VSS AFEBRILE. MONPRODUCTIVE COUGH NOTED. PT HAPPY TO BE GOING HOME TOMORROW. IVFS DCD ORDERED. PT FELT LIKE HER HAND WAS SWELLING AND SHE WAS LOOKING PUFFY. IV IN RIGHT AC FLUSHED WELL ADN HAS BLOOD RETURN. ENCOURAGED PT TO RAISE ARMS UP AND MOVE THEM AROUND PERIODICALLY. PT IS DRINKING PO FLUIDS WITHOUT DIFFICULTY AND IS GOING HOME TOMORROW. IVFS DCD ORDERED. PT AMBULATED TO BR WITH STEADY GAIT. NO S/S DISTRESS. ON 2LNC.
[2020-08-27 03:41] VITALS: BP 101/60
--- NOTE | 2020-08-27 04:58 | NUR ---
VSS. AFEBRILE. SATS WNL ON O2 2LNC. DENIED PAIN. HANDS STILL SLIGHTLY EDEMATOUS RUE>LUE. PT STATED SHE HAS VOIDED 3X TONIGHT IN BR. NO S/S DISTRESS. NONPRODUCTIVE COUGH STILL NOTED. PROGRESSING TOWARSDS D/C GOALS.
[2020-08-27 05:01] LABS: ABSOLUTE NEUTROPHILS 2.6 thou/uL (1.4-8.2); BASOPHILS 0.3 % (0.0-2.0); EOSINOPHILS 0.4 % (0.0-3.0); HEMATOCRIT 36.2 % (37.0-47.0); HEMOGLOBIN 11.7 gm/dL (12.0-15.0); LYMPHOCYTES 28.6 % (24.0-44.0); MCHC 32.3 g/dL (28.0-37.0); MCV 83.6 fL (80.0-100.0); MONOCYTES 13.1 % (1.0-8.0); PLATELET COUNT 218 thou/uL (150-400); POLYS 57.6 % (36.0-66.0); RBC 4.33 mil/uL (4.20-5.00); RDW 16.6 % (10.5-14.5); WBC 4.5 thou/uL (4.0-11.0)
[2020-08-27 05:21] LABS: ALBUMIN 2.6 g/dL (3.4-5.0); CALCIUM 8.6 mg/dL (8.5-10.1); CREATININE 0.9 mg/dL (0.6-1.0); MAGNESIUM 2.1 mg/dL (1.8-2.4); PHOSPHORUS 4.2 mg/dL (2.5-4.9); POTASSIUM 3.5 mmol/L (3.5-5.1); TOTAL BILIRUBIN 0.3 mg/dL (0.2-1.0); TOTAL PROTEIN 6.4 g/dL (6.4-8.2)
[2020-08-27 07:39] VITALS: BP 102/60
[2020-08-27 12:45] VITALS: BP 117/69
--- NOTE | 2020-08-27 12:49 | NUR ---
MAXWELL sent referral to On-call care services for HH. On-call [phone] to contact pt on 08/28 to start care for 08/29. SW faxed D/C summary, instructions, and final med list [phone]. MAXWELL advised medical team and contacted [facility] to cancel referral. SW awaiting a phone call from [facility] liasion to confirm cancellation.
[2020-08-27] MEDS ORDERED: NYSTATIN100000 UNI SW&SWALLOW (15:34)
[2020-08-27] MEDS ORDERED: CEFDINIR300 MG PO (15:34)
[2020-08-27] MEDS ORDERED: ZINC SULFATE50 MG PO (15:36)
[2020-08-27] MEDS ORDERED: MIRALAX17 GM PO (15:36)
[2020-08-27] MEDS ORDERED: ACEROLA C500 MG PO (15:37)
[2020-08-27] MEDS ORDERED: VITAMIN D325 MC1 PO (15:37)
[2020-08-27] MEDS ORDERED: DEXAMETHASONE1 MG PO (15:39)
[2020-08-27] MEDS ORDERED: NYAMYC15 GM TOP (15:40)
--- NOTE | 2020-08-27 17:17 | NUR ---
ASSUMED PATIENT CARE AT 0700. A/O X4. NO SOB ON 2L/NC. AMBULATED IN ROOM. WILL DC TO HOME WITH HH.
== END 2020-08-27 17:36 | disposition home health service (06) | DRG 871 ==
LOC: ER 15:27 → EROBS 18:38 → 3W 18:38
PROVIDERS: Internal Medicine; Internal Medicine Hematology & Oncology; Nurse Practitioner Family; Physician Assistant; ADMIT Internal Medicine; ATTEND Internal Medicine
PROC: XW033E5 Introduction of Remdesivir Anti-infective into Peripheral Vein, Percutaneous Approach, New Technology Group 5 (ICD-10-PCS; principal; 2020-08-22)
DX: A41.89 Other specified sepsis (principal); U07.1 COVID-19; J96.01 Acute respiratory failure with hypoxia; J12.82 Pneumonia due to coronavirus disease 2019; D61.818 Other pancytopenia; Z68.42 Body mass index [BMI] 45.0-49.9, adult; F41.9 Anxiety disorder, unspecified; D69.6 Thrombocytopenia, unspecified; E66.01 Morbid (severe) obesity due to excess calories; F32.9 Major depressive disorder, single episode, unspecified; I10 Essential (primary) hypertension; R73.03 Prediabetes; D64.9 Anemia, unspecified; M94.0 Chondrocostal junction syndrome [Tietze]; K59.00 Constipation, unspecified; Z90.710 Acquired absence of both cervix and uterus; Z79.899 Other long term (current) drug therapy; Z88.2 Allergy status to sulfonamides
CPT/HCPCS: 10879

== ENCOUNTER → 2020-12-13 | Outpatient (CLI) | payer OTHER ==
[~2020-12-13] MED LIST changes: +ACEROLA C500 MG PO; +CEFDINIR300 MG PO; +DEXAMETHASONE1 MG PO; +MIRALAX17 GM PO; +NORCO5 PO; +NYAMYC15 GM TOP; +NYSTATIN100000 UNI SW&SWALLOW; +OMEPRAZOLE40 MG PO; +SPIRONOLACTONE100 M1 PO; +VITAMIN D325 MC1 PO; +ZINC SULFATE50 MG PO
--- NOTE | 2020-12-19 15:11 | SLE ---
[facility] [place] [address] POLYSOMNOGRAPHY STUDY Name: SULAIMAN OLSON Room #: REG [facility].#: [id number] Admission: 12/13/20 Attend Phys: Sami Rojas MD Discharge: Date of : 68 Report #: [id number] THIS REPORT FOR: cc: Delia Young DNP, Mary E. DNP Khan, Aman U. MD ~ cc: Tobi Pascual MD DATE OF SERVICE: 12/13/2020 SLEEP STUDY ATTENDING PHYSICIAN: Dr. Tobi Pascual. The patient is 49 years old who weighs 313 pounds with a BMI of 46. The patient's Rochester score was 7. The patient underwent diagnostic sleep study, performed at [facility]. During the night study, the patient spent 442 minutes in bed and slept for 282 minutes with a sleep efficiency of 64%. Sleep latency was 42 minutes with a REM latency of 296 minutes. Sleep architecture showed a normal N1 sleep; increased N2 sleep; normal N3 sleep; and reduced REM sleep, which was only 4% of the total sleep time. During the night of the study, the patient had 1 obstructive apnea, no mixed or central apneas, and 84 hypopneas. The patient's AHI was 18.1 per hour with a REM AHI of 86 per hour. The patient did not have significant supine sleep. EKG monitoring revealed a mean heart rate of 77 beats per minute. No sustained arrhythmias observed. No clinically significant PLM seen. Nocturnal oximetry study revealed an average oxygen saturation of 92% with a lowest of 68%; 11.5 minutes were spent with oxygen saturation of less than 89%. The patient did meet the criteria for CPAP titration, but it was late in the night. As a result, there was not enough time to initiate CPAP. IMPRESSION: 1. Moderate obstructive sleep apnea with worsening during rapid eye movement sleep. Total apnea-hypopnea index 18 per hour with a rapid eye movement apnea-hypopnea index of 86 per hour. Absence of supine sleep can underestimate the severity of sleep apnea. 2. Nocturnal hypoxia secondary to obstructive sleep apnea. 3. No clinically significant periodic limb movements. [facility] [address] [place] [address] POLYSOMNOGRAPHY STUDY Name: SULAIMAN OLSON [id number] Admission: 12/13/20 Attend Phys: Sami Rojas MD Discharge: Date of : 68 Report #: [id number] 4. Reduced sleep efficiency, resulting from sleep onset and sleep maintenance insomnia. RECOMMENDATIONS: 1. The patient would benefit from return to the sleep lab for CPAP titration study. 2. Once the patient is optimally treated with CPAP, then follow up in 4-6 weeks to assess compliance and to document clinical improvement. 3. Weight loss is advised. 4. Avoid WELL PULLER HEAD depressant. 5. Cautioned regarding driving until symptoms of sleep apnea resolve with the use of CPAP. <ELECTRONICALLY SIGNED> By: Sami Rojas MD 12/19/20 1511 1 0836 Sami Rojas MD /nt
== END ==
LOC: SLEEPLAB 16:09
PROVIDERS: ATTEND Internal Medicine Critical Care Medicine
DX: G47.33 Obstructive sleep apnea (adult) (pediatric) (principal); Z20.822 Contact with and (suspected) exposure to COVID-19

== ENCOUNTER → 2021-01-31 | Outpatient (CLI) | payer OTHER ==
--- NOTE | 2021-02-14 09:30 | SLE ---
[facility] [place] [address] POLYSOMNOGRAPHY STUDY Name: SULAIMAN OLSON Room #: REG [facility].#: [id number] Admission: 01/31/21 Attend Phys: Sami Rojas MD Discharge: Date of : 68 Report #: [id number] THIS REPORT FOR: cc: Delia Young DNP, Mary E. DNP Khan, Aman U. MD ~ cc: Tobi Pascual MD DATE OF SERVICE: 02/01/2021 SLEEP STUDY DATE OF STUDY: 02/01/2021 ATTENDING PHYSICIAN: Dr. Tobi Pascual The patient is 50 years old who weighs 313 pounds with a BMI of 46.2. The patient's Halliday score was 12. The patient had a previous diagnostic sleep study performed at [facility] on 12/13/2020. The patient had mild ALYSA with worsening during REM sleep. Total AHI 18 per hour with a REM AHI of 86 per hour. The patient returned to [facility] lab for CPAP titration study. During the night study, the patient spent 413 minutes in bed and slept for 350 minutes with a sleep efficiency of 85%. Sleep latency was 30 minutes with a REM latency of 71.5 minutes. Sleep architecture showed normal stage 1 and stage 2 sleep, normal slow wave and increased REM sleep which was 30% of total sleep time. EKG monitoring revealed an average heart rate of 84 beats per minute. No sustained arrhythmias observed. Occasional PVCs seen. No significant PLM seen. The patient was started on CPAP at 5 cm water and titrated up to 12 cm of water. At the final pressure, the patient slept for 99.5 minutes. The patient had supine and REM sleep. The patient's AHI was reduced to 0.6 per hour and oxygen saturations remained above 90%. IMPRESSION: 1. Sleep apnea diagnosed by previous sleep study. 2. No clinically significant periodic limb movements. RECOMMENDATIONS: 1. CPAP at 12 cm water completely eliminated the patient's sleep apnea and should be used on a nightly basis. [facility] [address] [place] [address] POLYSOMNOGRAPHY STUDY Name: SULAIMAN OLSON Room #: REG [facility] Lilia#: [id number] Admission: 01/31/21 Attend Phys: Sami Rojas MD Discharge: Date of : 68 Report #: [id number] 2. Follow up in 4-6 weeks to assess compliance with CPAP and to document clinical improvement. 3. Weight loss is strongly advised. 4. Avoid DEVULCANIZER HEAD depressants. 5. Cautioned regarding driving until symptoms of sleep apnea resolve with the use of CPAP. <ELECTRONICALLY SIGNED> By: Sami Rojas MD 02/14/2130 03 17 Sami Rojas MD /nt
== END ==
LOC: SLEEPLAB 08:33
PROVIDERS: ATTEND Internal Medicine Critical Care Medicine
DX: Z01.812 Encounter for preprocedural laboratory examination (principal); G47.33 Obstructive sleep apnea (adult) (pediatric); Z20.822 Contact with and (suspected) exposure to COVID-19